=== PATIENT | male | born 1945 | race Caucasian/White ===

== ENCOUNTER 2016-10-05 14:43 | Observation (INO) | payer MEDICARE, OTHER ==
[~2016-10-05] VITALS: Ht 185.4 cm; Wt 100.0 kg
[~2016-10-05 14:43] MED LIST: ALBU17I INH; ATROVENT INH; Z.0.NO CURRENT MEDS
[2016-10-05 14:53] VITALS: BP 109/65; PULSE 72; RESP 14; TEMP 98.1; O2SAT 95
[2016-10-05 14:56] VITALS: BP 109/65; PULSE 72; RESP 14; O2SAT 95
[2016-10-05] MEDS ORDERED: SODIUM CHLOR 0.9% 1000 ML INJ 1,000 ML IV SCH (15:09)
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
[2016-10-05 15:40] LABS: AUTOMATED NEUTROPHIL # 4.3 TH/MM3 (1.8-7.7); BASOPHIL # 0.1 TH/MM3 (0-0.2); BASOPHIL % 1.1 % (0.0-2.0); EOSINOPHIL # 0.2 TH/MM3 (0-0.4); EOSINOPHIL % 2.9 % (0.0-4.0); HEMATOCRIT 43.8 % (39.0-51.0); LYMPHOCYTE # 1.9 TH/MM3 (1.0-4.8); MEAN CELL VOLUME 93.6 FL (80.0-100.0); MEAN CORPUSCULAR HEMOGLOBIN 31.5 PG (27.0-34.0); MEAN CORPUSCULAR HGB CONC 33.7 % (32.0-36.0); MONO % 6.9 % (0.0-8.0); NEUT % 62.1 % (16.0-70.0); PLATELET COUNT 216 TH/MM3 (150-450); RED BLOOD COUNT 4.68 MIL/MM3 (4.50-5.90); RED CELL DISTRIBUTION WIDTH 14.3 % (11.6-17.2); WHITE BLOOD COUNT 6.9 TH/MM3 (4.0-11.0)
[2016-10-05 15:42] LABS: HEMO FLAGS DIFF FINAL
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
[2016-10-05 15:53] LABS: APTT (PATIENT) 33.5 SEC (24.3-30.1); PROTHROMBIN TIME - PATIENT 11.5 SEC (9.8-11.6)
[2016-10-05 16:06] LABS: ANION GAP 9 MEQ/L (5-15)
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
[2016-10-05 16:12] LABS: AMPHETAMINE, URINE NEG (NEG); BARBITURATES, URINE NEG (NEG); COCAINE, URINE NEG (NEG)
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
[2016-10-05 16:29] LABS: ALKALINE PHOSPHATASE 42 U/L (45-117); ALT (GPT) 24 U/L (12-78); AST (GOT) 14 U/L (15-37); BICARBONATE 25.1 MEQ/L (21.0-32.0); BLOOD UREA NITROGEN 9 MG/DL (7-18); CHLORIDE 101 MEQ/L (98-107); GLOMERULAR FILTRATION RATE 100 ML/MIN (>89); SODIUM (NA) 135 MEQ/L (136-145); TOTAL BILIRUBIN ADULT 0.2 MG/DL (0.2-1.0)
[2016-10-05 16:31] LABS: POTASSIUM 3.9 MEQ/L (3.5-5.1)
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
[2016-10-05] MEDS ORDERED: PROPOFOL 200 MG/20 ML AMP IV ONE (17:00)
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
[2016-10-05 17:23] VITALS: O2SAT 96
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
[2016-10-05] MEDS: SODIUM CHLORIDE 0.9% FLUSH 10 ML FLUSH IV FLUSH PRN ×2 (17:40→18:13)
[2016-10-05 17:55] VITALS: BP 120/61
[2016-10-05 18:25] VITALS: BP 119/59
[2016-10-05] MEDS ORDERED: LABE100T2 PO (18:38)
[2016-10-05] MEDS ORDERED: LISI-519 PO (18:38)
[2016-10-05] MEDS ORDERED: DONE10TA7 PO (18:38)
[2016-10-05] MEDS ORDERED: AMLO5TAB2 PO (18:38)
[2016-10-05] MEDS ORDERED: LISI-515 PO (18:38)
[2016-10-05] MEDS ORDERED: GLIM2TAB PO (18:38)
[2016-10-05 19:36] VITALS: BP 151/88; PULSE 80; RESP 24; TEMP 96; O2SAT 97
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
[2016-10-05] MEDS ORDERED: FLUMAZENIL 0.5 MG/5 ML VIAL IV PUSH PRN (19:45)
[2016-10-05] MEDS ORDERED: LORazepam 1 MG TAB PO PRN (19:45)
[2016-10-05] MEDS ORDERED: LORazepam 2 MG TAB PO PRN (19:45)
[2016-10-05] MEDS ORDERED: ONDANSETRON HCL 4 MG/2 ML VIAL IV PUSH PRN (19:45)
[2016-10-05] MEDS ORDERED: LORazepam 2 MG/ML VIAL IV PUSH PRN ×4 (19:45)
[2016-10-05] MEDS: MORPHINE SULFATE 4 MG/ML INJ IV PUSH PRN ×2 (20:01→23:19)
[2016-10-05] MEDS ORDERED: PILL SPLITTER OTHER PRN (21:00)
[2016-10-06 03:13] VITALS: BP 139/66; PULSE 88; RESP 18; TEMP 98.8; O2SAT 92
[2016-10-06] MEDS: MORPHINE SULFATE 4 MG/ML INJ IV PUSH PRN ×2 (04:40→16:55)
[2016-10-06] MEDS ORDERED: ACETAMINOPHEN 1000 MG/100 ML VIAL IV ONE (06:37)
[2016-10-06] MEDS ORDERED: VANCOMYCIN HCL 1000 MG VIAL ONE (07:02)
[2016-10-06] MEDS ORDERED: GENTAMICIN SULFATE 80 MG/2 ML VIAL ONE (07:03)
[2016-10-06] MEDS ORDERED: SODIUM CHLOR 0.9% 250 ML INJ 250 ML ONE (07:03)
[2016-10-06] MEDS ORDERED: FAMOTIDINE 20 MG/2 ML VIAL ONE (07:34)
[2016-10-06] MEDS ORDERED: DEXAMETHASONE SOD PHOS 4 MG/ML VIAL ONE (07:35)
[2016-10-06] MEDS ORDERED: fentaNYL CITRATE 250 MCG/5 ML AMP ONE (07:35)
[2016-10-06] MEDS ORDERED: MIDAZOLAM HCL 2 MG/2 ML VIAL ONE (07:35)
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
[2016-10-06] MEDS ORDERED: ceFAZolin 2 GM PREMIX 50 ML ONE (08:16)
--- NOTE | 2016-10-06 09:12 | PD.OP ---
cc: Jose Prieto MD Operative Report Date of Surgery: Oct 06, 2016 Preoperative Diagnosis: Displaced right ankle distal fibula and posterior malleolus fracture Postoperative Diagnosis: Procedure: Open reduction internal fixation right ankle fibula fracture, stress exam of syndesmosis Surgeon: Jose Prieto Senior Program Planner(s): ESTHER Casarez PA-C The surgical procedure was assisted by my physician executive personal assistant. My P.A. presence was necessary throughout this case for the manipulation and positioning of the surgical extremity. My P.A. was assisting me throughout the duration of this procedure. The skill set of a physician executive personal assistant was medically necessary to complete this procedure. During the surgical case the surgical training specialist was working at the back table and the physician executive personal assistant was directly assisting me. Operation and Findings: Patient was seen and evaluated preoperatively and found to have a displaced right ankle fracture. Informed consent was obtained after a detailed discussion of risk and benefits of surgery. The operative site was marked. Patient was brought to the OR, placed on the OR table, and given IV sedation and general endotracheal anesthesia. IV antibiotics were given preoperatively. A timeout procedure was performed. The left leg was prepped with alcohol followed by Hibiclens and draped in the usual sterile fashion. Attention was turned towards the distal fibula. A four-inch incision was made over the distal fibula. The subcutaneous tissue was dissected with Bovie. The fracture site was visualized. The fracture site was cleaned with curets. The fracture was now reduced. The fracture keyed into anatomic alignment. K-wires were used to h old provisional fixation. A 2.7 cortical lag screw was placed from anterior to posterior. Good compression was obtained. A Synthes plate was selected. The plate was provisionally held to bone with K-wires. 3.5 cortical screws were used to compress the plate to bone. Multiple cortical screws were placed above and below the fracture. The posterior malleolus fracture was visualized under fluoroscopy. There appeared to be minimal articular surface on this fragment. This was left in place. Next, attention was turned to the syndesmosis. The syndesmosis was stressed. There was no widening of the syndesmosis with external rotation of the ankle. Incisions were thoroughly irrigated. The subcutaneous tissue was closed with 3- 0 PDS and the skin was closed with 3-0 nylon. Sterile dressings were applied. The patient was transferred to Recovery in stable condition. Jose Prieto MD Oct 06, 2016 09:12
[2016-10-06] MEDS ORDERED: HYDR-3288 PO (09:14)
[2016-10-06] MEDS ORDERED: MORPHINE SULFATE 4 MG/ML INJ IV PUSH PRN (09:15)
[2016-10-06] MEDS ORDERED: Post-op Orders (for Pharmacy) MISC XX ONE (09:15)
[2016-10-06] MEDS ORDERED: *morphine SULFATE 8 MG/ML PERIprocedure ONLY ONE (09:57)
[2016-10-06] MEDS ORDERED: *RESP: ALBUTEROL 2.5 MG/3 ML NEB (PRN) PERIprocedural Use ONLY NEB ONE (10:24)
[2016-10-06 10:53] VITALS: BP 136/67; PULSE 83; RESP 20; TEMP 98; O2SAT 92
--- NOTE | 2016-10-06 11:03 | EKG ---
Date Performed: 10/05/2016 Time Performed: 15:54:58 PTAGE: 71 years EKG: Sinus rhythm POSSIBLE INFERIOR MYOCARDIAL INFARCTION BORDERLINE ECG PREVIOUS TRACING : 07/30/2007 18.22 DOCTOR: Slick Mcclain Interpretating Date/Time 10/06/2016 11:01:26
[2016-10-06] MEDS ORDERED: PROPOFOL 200 MG/20 ML AMP IV ONE (12:00)
[2016-10-06] MEDS ORDERED: ONDANSETRON HCL 4 MG/2 ML VIAL IV PUSH ONE (12:00)
[2016-10-06] MEDS ORDERED: NEOSTIGMINE 3 MG/3 ML SYR IV ONE (12:00)
[2016-10-06] MEDS ORDERED: ePHEDrine/NS 25 MG/5 ML SYR IV ONE (12:00)
[2016-10-06] MEDS ORDERED: PHENYLEPH/NS 1000 MCG/10 ML SYR IV ONE (12:00)
[2016-10-06] MEDS: MULTIVITAMIN TAB PO SCH (12:23)
[2016-10-06] MEDS: PARoxetine HCL 20 MG TAB PO SCH (12:24)
--- NOTE | 2016-10-06 13:22 | HHI.PR ---
Subjective Remarks No new complaints. Objective Vitals Vital Signs Date Time Temp Pulse Resp B/P Pulse Ox O2 Delivery O2 Flow Rate FiO2 10/06/16 10:53 98.0 83 20 136/67 92 10/06/16 10:40 97.7 79 16 130/72 93 Room Air Aerosol Mask 10/06/16 10:30 79 16 130/72 93 Aerosol Mask 10/06/16 10:15 79 16 120/62 92 Nasal Cannula 2 10/06/16 10:00 81 16 128/64 94 Nasal Cannula 2 10/06/16 09:45 86 15 128/64 96 Nasal Cannula 3 10/06/16 09:35 97.4 100 15 123/71 95 Nasal Cannula 3 10/06/16 03:13 98.8 88 18 139/66 92 10/05/16 19:36 96.0 80 24 151/88 97 Nasal Cannula 2 10/05/16 18:25 96 Nasal Cannula 2 10/05/16 18:25 119/59 10/05/16 17:55 120/61 10/05/16 17:23 96 Nasal Cannula 3.00 10/05/16 17:23 96 3.00 10/05/16 14:56 72 14 109/65 95 Room Air 10/05/16 14:53 98.1 72 14 109/65 95 Result Diagram: 10/05/16 1522 10/05/16 1522 Imaging Last 72 hours Impressions Ankle X-Ray 10/05/16 1652 Signed Impressions: Service Date/Time: Wednesday, October 05, 2016 17:12 - CONCLUSION: Post reduction films are noted as above. Roland Stanford MD Head CT 10/05/16 1509 Signed Impressions: Service Date/Time: Wednesday, October 05, 2016 15:23 - CONCLUSION: No acute disease. Roland Stanford MD Chest X-Ray 10/05/16 1509 Signed Impressions: Service Date/Time: Wednesday, October 05, 2016 15:48 - CONCLUSION: No acute cardiopulmonary abnormality is identified. Shun Carrero MD Multiplanar Reconstruction 10/05/16 0000 Signed Impressions: Service Date/Time: Wednesday, October 05, 2016 15:32 - CONCLUSION: 3-D reconstructions were performed to assist with clinical management. Please refer to ankle CT report for further description. Shun Carrero MD Lower Extremity CT 10/05/16 0000 Signed Impressions: Service Date/Time: Wednesday, October 05, 2016 15:29 - CONCLUSION: Distal tibia and fibular fractures are noted with interruption of the ankle mortise as described above. Roland Stanford MD Objective Remarks GENERAL: This is a well-nourished, well-developed patient, in no apparent distress. CARDIOVASCULAR: Regular rate and rhythm without murmurs, gallops, or rubs. RESPIRATORY: Clear to auscultation. Breath sounds equal bilaterally. No wheezes , rales, or rhonchi. GASTROINTESTINAL: Abdomen soft, non-tender, nondistended. Normal active bowel sounds MUSCULOSKELETAL: Extremities without clubbing, cyanosis, or edema. NEURO: Alert & Oriented x4 to person, place, time, situation. Moves all ext x4 A/P Problem List: (1) Closed right ankle fracture Status: Acute Plan: - ORIF of right fibula fracture, performed by Dr. Jose Bedoya (10/06/16) - morphin/norco prn - will need anticoagulation for DVT prophylaxis - will need SNF We have been asked to admit the patient to the medicine service given his history of COPD and current slightly intoxicated state Orthopedics has been consult and and apparently surgical intervention is planned for tomorrow (2) Contusion of scalp, initial encounter Status: Acute Plan: - Head CT is negative. (3) Elevated ETOH level Status: Acute Plan: - ativan prn agitation (4) COPD (chronic obstructive pulmonary disease) Status: Chronic Plan: - duonebs prn - smoking cessation was d/w pt (5) Hypertension Status: Chronic Plan: - stable without BP meds - observe (6) Anxiety Status: Chronic Plan: - paxil, ativan Problem Qualifiers (1) Closed right ankle fracture: Qualified Code: S82.891A - Closed right ankle fracture, initial encounter (2) Elevated ETOH level: Qualified Code: Y90.7 - Blood alcohol level of 200-239 mg/100 ml (3) COPD (chronic obstructive pulmonary disease): Qualified Code: J44.9 - Chronic obstructive pulmonary disease, unspecified COPD type (4) Hypertension: Qualified Code: I10 - Essential hypertension Odilon Abrams DO Oct 06, 2016 13:21
--- NOTE | 2016-10-06 13:35 | RADRPT ---
EXAM DATE/TIME: 10/06/2016 08:59 [facility] COMPARISON: ANKLE RIGHT LIMITED (AP&LAT), October 05, 2016, 17:12. INDICATIONS : ORIF right ankle. MEDICAL HISTORY : None. SURGICAL HISTORY : None. ENCOUNTER: Subsequent ACUITY: 2 days PAIN SCORE: Non-responsive. LOCATION: Right ankle. FINDINGS: 2 spot intraoperative fluoroscopic views of the right ankle demonstrate lateral plate and screw fixat ion of the distal fibula with good alignment at the fracture site. CONCLUSION: Postoperative changes right fibular fixation hardware placement. Roland Stanford MD on October 06, 2016 at 13:33 Board Certified Radiologist. This report was verified electronically.
[2016-10-06 14:51] VITALS: BP 119/64; PULSE 80; RESP 20; TEMP 98.1; O2SAT 93
[2016-10-06] MEDS ORDERED: ceFAZolin 2 GM PREMIX 50 ML IV SCH (16:00)
[2016-10-06 19:36] VITALS: O2SAT 93
[2016-10-06 20:23] VITALS: BP 125/61; PULSE 75; RESP 18; TEMP 98.8; O2SAT 95
[2016-10-06] MEDS: ACETAMINOPHEN/HYDROcodone 325 MG/7.5 MG TAB PO PRN (22:41)
[2016-10-06 23:44] VITALS: BP 124/60; PULSE 70; RESP 18; TEMP 98.8; O2SAT 96
[2016-10-07 04:46] VITALS: BP 157/74; PULSE 67; RESP 18; TEMP 98.8; O2SAT 98
--- NOTE | 2016-10-07 07:52 | PD.ORT.PN ---
Subjective Subjective Remarks POD 1 s/p ORIF right ankle doing well. pain controlled. no complaitns. Objective Vitals Vital Signs Date Time Temp Pulse Resp B/P Pulse Ox O2 Delivery O2 Flow Rate FiO2 10/07/16 04:46 98.8 67 18 157/74 98 10/06/16 23:44 98.8 70 18 124/60 96 10/06/16 20:23 98.8 75 18 125/61 95 10/06/16 19:36 93 Nasal Cannula 2.00 10/06/16 14:51 98.1 80 20 119/64 93 10/06/16 10:53 98.0 83 20 136/67 92 10/06/16 10:40 97.7 79 16 130/72 93 Room Air Aerosol Mask 10/06/16 10:30 79 16 130/72 93 Aerosol Mask 10/06/16 10:15 79 16 120/62 92 Nasal Cannula 2 10/06/16 10:00 81 16 128/64 94 Nasal Cannula 2 10/06/16 09:45 86 15 128/64 96 Nasal Cannula 3 10/06/16 09:35 97.4 100 15 123/71 95 Nasal Cannula 3 I/O 10/06/16 10/06/16 10/06/16 10/07/16 10/07/16 10/07/16 07:00 15:00 23:00 07:00 15:00 23:00 Intake Total 900 ml Output Total 400 ml Balance 900 ml -400 ml Intake IV Total 100 ml Other 800 ml Output Urine Total 400 ml Result Diagram: 10/05/16 1522 10/05/16 1522 Objective Remarks RLE: dressings clean and dry. +splint. NVI Assessment & Plan Assessment and Plan 1) Right Ankle Fx s/p ORIF - POD 1 -NWB -elevate -maintain splint -ortho clear for discharge -f/u with [facility] or [facility] in 2 weeks Phil Angel Oct 07, 2016 07:52
[2016-10-07] MEDS ORDERED: WALKER/ADULT/FO1 MIS (07:53)
[2016-10-07 08:07] VITALS: BP 137/77; PULSE 66; RESP 19; TEMP 94.8; O2SAT 94
[2016-10-07] MEDS: PARoxetine HCL 20 MG TAB PO SCH (08:45)
[2016-10-07] MEDS: ACETAMINOPHEN/HYDROcodone 325 MG/7.5 MG TAB PO PRN ×2 (08:46→13:49)
[2016-10-07] MEDS: MULTIVITAMIN TAB PO SCH (08:46)
[2016-10-07 12:06] VITALS: BP 134/72; PULSE 69; RESP 18; TEMP 95.3; O2SAT 95
[2016-10-07] MEDS ORDERED: LORA1TAB12 PO (13:28)
[2016-10-07] MEDS ORDERED: PARO30TA2 PO (13:28)
[2016-10-07] MEDS ORDERED: CENTTAB PO (13:28)
[2016-10-07] MEDS ORDERED: ASPI81CH CHEW (13:28)
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
[2016-10-07] MEDS ORDERED: ENOX30P SQ (13:40)
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
[2016-10-07] MEDS ORDERED: ENOXAPARIN SODIUM 30 MG/0.3 ML SYRINGE SQ SCH (14:00)
[2016-10-07] MEDS ORDERED: LORA-474 PO (14:25)
== END 2016-10-07 16:27 ==
LOC: NEPE 14:43 → NEDA 17:29 → INTOOBSV 17:29 → NEPGCP 20:09
PROVIDERS: ADMIT Hospitalist; ATTEND Hospitalist
DX: S82.831A Other fracture of upper and lower end of right fibula, initial encounter for closed fracture (principal); S82.891A Other fracture of right lower leg, initial encounter for closed fracture; S00.03XA Contusion of scalp, initial encounter; I25.10 Atherosclerotic heart disease of native coronary artery without angina pectoris; J44.9 Chronic obstructive pulmonary disease, unspecified; F17.200 Nicotine dependence, unspecified, uncomplicated; F41.9 Anxiety disorder, unspecified; I10 Essential (primary) hypertension; K21.9 Gastro-esophageal reflux disease without esophagitis; E78.5 Hyperlipidemia, unspecified; M54.16 Radiculopathy, lumbar region; R78.0 Finding of alcohol in blood; E78.00 Pure hypercholesterolemia, unspecified; G25.9 Extrapyramidal and movement disorder, unspecified; V18.4XXA Pedal cycle driver injured in noncollision transport accident in traffic accident, initial encounter; Y93.55 Activity, bike riding; Z96.652 Presence of left artificial knee joint; Y90.7 Blood alcohol level of 200-239 mg/100 ml
CPT/HCPCS: 01480; 27792; 27840; 70450; 71010; 73600; 73700; 76000; 76377; 80053; 80307; 85025; 85610; 85730; 93005; 94150; 94664; 96360; 97110; 97163; 97530; 99152; 99153; 99285; C1713; G0378; G8987; G8988; J0131; J0690; J1100; J1580; J1650; J2250; J2270; J2370; J2405; J2710; J3010; J3370; J7030; J7050; J7613